=== PATIENT | female | born 1940 ===

== ENCOUNTER 2023-05-24 21:59 | Inpatient (IN) | payer MEDICARE ==
[2023-05-24] MEDS ORDERED: Acetaminophen 325 MG TAB PO PRN (22:07)
[2023-05-24] MEDS ORDERED: Labetalol HCl 100 MG/20 ML VIAL SLOW IVP PRN (22:07)
[2023-05-24] MEDS ORDERED: hydrALAZINE 20 MG/ML VIAL SLOW IVP PRN (22:07)
[2023-05-24] MEDS ORDERED: Ondansetron PF 4 MG/2 ML Vial IVP PRN (22:07)
[2023-05-24 23:07] VITALS: BMI 26.7
[2023-05-25] MEDS ORDERED: Aspirin Chewable 81 MG TAB PO SCH (02:15)
[2023-05-25 05:57] LABS: #Basophils 0.1 thou/uL (0.0-0.2); #Eosinphils 0.4 thou/uL (0.0-0.7); #Monocytes 0.4 thou/uL (0.11-0.59); #Neutrophils 2.2 thou/uL (1.40-6.50); %Basophils 1.2 % (0.0-1.0); %Eosinophils 9.1 % (0.0-10.0); %Monocytes 8.6 % (0.0-10.0); %Neutrophils 51.9 % (42.0-75.0); Hemoglobin 12.9 g/dL (12.0-16.0); Mean Corpuscular HGB CONC 32.7 g/dL (32.0-36.0); Mean Corpuscular Hemoglobin 31.7 pg (27.0-31.0); Mean Corpuscular Volume 97.1 fl (78.0-98.0); Mean Platelet Volume 10.9 fL (7.4-10.4); Platelet Count 185 10x3/uL (130-400); RBC Distribution Width 13.2 % (11.5-14.5); Red Blood Cell (RBC) Count 4.07 mill/uL (4.20-5.40); White Blood Cell (WBC) Count 4.3 10x3/uL (4.8-10.8)
[2023-05-25 06:25] LABS: Anion Gap 15 mmol/L (10-20); BUN (Urea Nitrogen) 11 mg/dL (9.8-20.1); Calc. Creatinine Clearance 59 mL/min (70-130); Calcium 8.6 mg/dL (7.8-10.44); Carbon Dioxide 18 mmol/L (23-31); Cardiac Risk 2.2 (Less than 4.5); Chloride 109 mmol/L (98-107); Cholesterol 111 mg/dl (< 200 Desired); Estimated GFR 83; Glucose 137 mg/dL (83-110); HDL Cholesterol 50 mg/dL (>60 Neg Risk); LDL Cholesterol, Calculated 35 mg/dL; Magnesium 1.8 mg/dL (1.6-2.6); Potassium 3.6 mmol/L (3.5-5.1); Sodium 138 mmol/L (136-145); Triglycerides 130 mg/dL (Less than 150)
[2023-05-25] MEDS ORDERED: Aspirin 81 mg Enteric Coated Tablet PO SCH (09:00)
[2023-05-25] MEDS ORDERED: Clopidogrel Bisulfate 75 MG TAB PO SCH (09:00)
[2023-05-25] MEDS: Clopidogrel Bisulfate 75 MG TAB PO SCH (10:45)
[2023-05-25] MEDS: Rosuvastatin 10 MG TAB PO SCH (10:45)
[2023-05-25] MEDS: Aspirin 81 mg Enteric Coated Tablet PO SCH (10:45)
[2023-05-25] MEDS ORDERED: Glucagon 1 MG/ML KIT IM PRN (17:53)
[2023-05-25] MEDS ORDERED: Dextrose 5% in Water 1,000 ML IV PRN (17:53)
[2023-05-25] MEDS ORDERED: Dextrose 50% Abboject 50 ML SYRINGE SLOW IVP PRN (17:53)
[2023-05-25] MEDS ORDERED: Insulin Regular 300 UNITS/3 ML VIAL SC PRN ×2 (17:53→21:53)
[2023-05-25] MEDS: Insulin Glargine 30 UNITS/0.3 ML VIAL SC SCH (23:19)
[2023-05-26 05:14] LABS: #Eosinphils 0.4 thou/uL (0.0-0.7); #Monocytes 0.6 thou/uL (0.11-0.59); #Neutrophils 3.1 thou/uL (1.40-6.50); %Basophils 0.7 % (0.0-1.0); %Eosinophils 7.5 % (0.0-10.0); %Lymphocytes 24.2 % (21.0-51.0); %Monocytes 10.3 % (0.0-10.0); %Neutrophils 57.1 % (42.0-75.0); Mean Corpuscular HGB CONC 33.4 g/dL (32.0-36.0); Mean Corpuscular Hemoglobin 31.2 pg (27.0-31.0); Mean Corpuscular Volume 93.3 fl (78.0-98.0); Platelet Count 186 10x3/uL (130-400); Red Blood Cell (RBC) Count 4.17 mill/uL (4.20-5.40); White Blood Cell (WBC) Count 5.3 10x3/uL (4.8-10.8)
[2023-05-26 05:33] LABS: Anion Gap 14 mmol/L (10-20); BUN (Urea Nitrogen) 16 mg/dL (9.8-20.1); Calc. Creatinine Clearance 55 mL/min (70-130); Calcium 8.8 mg/dL (7.8-10.44); Carbon Dioxide 22 mmol/L (23-31); Chloride 109 mmol/L (98-107); Estimated GFR 75; Glucose 129 mg/dL (83-110); Potassium 3.8 mmol/L (3.5-5.1); Sodium 141 mmol/L (136-145)
[2023-05-26] MEDS: Rosuvastatin 10 MG TAB PO SCH (09:09)
[2023-05-26] MEDS: Aspirin 81 mg Enteric Coated Tablet PO SCH (09:09)
[2023-05-26] MEDS: Insulin Glargine 30 UNITS/0.3 ML VIAL SC SCH (09:09)
[2023-05-26] MEDS: Clopidogrel Bisulfate 75 MG TAB PO SCH (09:09)
[2023-05-26 12:21] VITALS: BP 166/88; TEMP 98.5
[2023-05-27] MEDS ORDERED: Rosuvastatin 20 MG TAB PO SCH (09:00)
== END 2023-05-26 13:36 | disposition home or self-care (01) | DRG 66 ==
LOC: 2SE 22:37 → OBSVTOIN 05-25 11:42
PROVIDERS: ADMIT Internal Medicine; ATTEND Internal Medicine
DX: I63.9 Cerebral infarction, unspecified (principal); R47.01 Aphasia; E11.51 Type 2 diabetes mellitus with diabetic peripheral angiopathy without gangrene; I10 Essential (primary) hypertension; I25.10 Atherosclerotic heart disease of native coronary artery without angina pectoris; R29.703 NIHSS score 3; E78.5 Hyperlipidemia, unspecified; R29.810 Facial weakness; Z79.82 Long term (current) use of aspirin; Z79.84 Long term (current) use of oral hypoglycemic drugs; Z79.899 Other long term (current) drug therapy; Z85.3 Personal history of malignant neoplasm of breast; Z98.890 Other specified postprocedural states; Z95.1 Presence of aortocoronary bypass graft; Z95.820 Peripheral vascular angioplasty status with implants and grafts; Z83.3 Family history of diabetes mellitus
CPT/HCPCS: 36415; 36416; 70551; 80048; 80061; 83036; 83735; 85025; 93306; 93880; 95816; 95819; 95957; G0378; J1815